=== PATIENT | female | born 1950 | race Caucasian/White ===

== ENCOUNTER 2016-12-30 17:44 | Emergency (ER) | payer BC, MEDICARE ==
[2016-12-30] MEDS ORDERED: ASPIRIN 81 MG TABLET, CHEWABLE PO ONE (18:42)
--- NOTE | 2016-12-30 18:44 | ER Document Report ---
ED Medical Screen (RME) - General Chief Complaint: Chest Pain Stated Complaint: CHEST PAIN, NECK PAIN,BACK PAIN Time Seen by Provider: 12/30/16 18:41 Notes: Patient has 2 days of chest pain radiating to the right shoulder. No cough cold congestion. No previous history of cardiac disease. He states the pain has been constant. TRAVEL OUTSIDE OF THE [place] IN LAST 30 DAYS: No - Related Data Allergies/Adverse Reactions: No Known Allergies Allergy (Verified 12/30/16 17:52) Home Medications: Current Home Medications Omeprazole Magnesium [Prilosec Otc] 1 tab PO DAILY 12/30/16 [History] Past Medical History - Social History Chew tobacco use (# tins/day): No Frequency of alcohol use: None Drug Abuse: None Renal/ Medical History: Denies: Hx Peritoneal Dialysis GI Medical History: Reports: Hx Gastroesophageal Reflux Disease Past Surgical History: Reports: Hx Tubal Ligation Physical Exam - Vital signs Vitals: Temp Pulse Resp BP Pulse Ox 98.2 F 79 20 144/89 H 94 12/30/16 17:52 12/30/16 17:52 12/30/16 17:52 12/30/16 17:52 12/30/16 17:52 Course - Vital Signs Vital signs: Temp Pulse Resp BP Pulse Ox 98.2 F 64 20 144/89 H 94 12/30/16 17:52 12/30/16 18:34 12/30/16 17:52 12/30/16 17:52 12/30/16 17:52
--- NOTE | 2016-12-30 19:03 | RADIOLOGY REPORT (SQ) ---
EXAM DESCRIPTION: CHEST PA/LAT COMPLETED DATE/TIME: 12/30/2016 6:56 pm REASON FOR STUDY: pain COMPARISON: None. EXAM PARAMETERS: NUMBER OF VIEWS: two views TECHNIQUE: Digital Frontal and Lateral radiographic views of the chest acquired. RADIATION DOSE: NA LIMITATIONS: none FINDINGS: LUNGS AND PLEURA: No opacities, masses or pneumothorax. No pleural effusion. MEDIASTINUM AND HILAR STRUCTURES: No masses or contour abnormalities. HEART AND VASCULAR STRUCTURES: Heart normal size. No evidence for failure. BONES: No acute findings. HARDWARE: None in the chest. OTHER: No other significant finding. IMPRESSION: NO SIGNIFICANT RADIOGRAPHIC FINDING IN THE CHEST. TECHNICAL DOCUMENTATION: JOB ID: [id number]- All Rights Reserved
[2016-12-30 19:49] LABS: ABSOLUTE BASOPHILS # (AUTO) 0.1 10^3/uL (0.0-0.2); ABSOLUTE LYMPHOCYTES (AUTO) 1.6 10^3/uL (0.5-4.7); ABSOLUTE MONOCYTES (AUTO) 0.6 10^3/uL (0.1-1.4); ABSOLUTE NEUT (AUTO) 13.3 10^3/uL (1.7-8.2); BASOPHILS % (AUTO) 0.4 % (0-2); EOSINOPHILS % (AUTO) 0.2 % (0-6); HEMATOCRIT 44.8 % (36.0-47.0); HEMOGLOBIN 15.4 g/dL (12.0-15.5); HGB HCT DIFFERENCE 1.4; LYMPHOCYTES % (AUTO) 10.4 % (13-45); MEAN CORPUSCULAR HGB CONC 34.3 g/dL (32.0-36.0); MEAN CORPUSCULAR VOLUME 85 fl (80-97); MONOCYTES % (AUTO) 3.9 % (3-13); RED BLOOD COUNT 5.31 10^6/uL (3.72-5.28); RED CELL DISTRIBUTION WIDTH 14.2 % (11.5-14.0); SEGMENTED NEUTROPHILS % (AUTO) 85.1 % (42-78); WHITE BLOOD COUNT 15.7 10^3/uL (4.0-10.5)
[2016-12-30] MEDS ORDERED: KETOROLAC TROMETHAMINE INJ/PF 30 MG/1 ML SDV IV ONE (20:14)
[2016-12-30] MEDS ORDERED: LIDOCAINE 5% (700 MG) TRANSDERMAL ADH..PATCH TP ONE (20:14)
--- NOTE | 2016-12-30 20:17 | ER Document Report ---
ED General - General Chief Complaint: Chest Pain Stated Complaint: CHEST PAIN, NECK PAIN,BACK PAIN Time Seen by Provider: 12/30/16 18:41 Notes: Patient is a 66-year-old female with past medical history of hypertension, no known cardiac history, no prior history of DVT or pulmonary embolus, no prior abdominal surgeries who presents with 24 hours of right lower chest wall pain and right upper quadrant abdominal pain. Does describe it as a constant, stabbing, throbbing discomfort. She notes associated nausea. She denies any fever, shortness of breath, or diaphoresis. She states that she has felt hot and then cold since onset of the pain. She denies any history of similar symptoms in the past. Nothing improves or worsens her pain. She has not seen a primary care doctor regarding today's concerns. TRAVEL OUTSIDE OF THE [place] IN LAST 30 DAYS: No - Related Data Allergies/Adverse Reactions: No Known Allergies Allergy (Verified 12/30/16 17:52) Home Medications: Current Home Medications Omeprazole Magnesium [Prilosec Otc] 1 tab PO DAILY 12/30/16 [History] Past Medical History - General Information source: Patient - Social History Smoking Status: Never Smoker Chew tobacco use (# tins/day): No Frequency of alcohol use: None Drug Abuse: None Lives with: Spouse/Significant other Family History: Reviewed & Not Pertinent Patient has suicidal ideation: No Patient has homicidal ideation: No Renal/ Medical History: Denies: Hx Peritoneal Dialysis GI Medical History: Reports: Hx Gastroesophageal Reflux Disease Past Surgical History: Reports: Hx Tubal Ligation Review of Systems - Review of Systems Notes: Constitutional: Negative for fever. HENT: Negative for sore throat. Eyes: Negative for visual changes. Cardiovascular: Positive for chest pain. Respiratory: Negative for shortness of breath. Gastrointestinal: Positive for abdominal pain and nausea Genitourinary: Negative for dysuria. Musculoskeletal: Negative for back pain. Skin: Negative for rash. Neurological: Negative for headaches, weakness or numbness. 10 point ROS negative except as marked above and in HPI. Physical Exam - Vital signs Vitals: Temp Pulse Resp BP Pulse Ox 98.2 F 79 20 144/89 H 94 12/30/16 17:52 12/30/16 17:52 12/30/16 17:52 12/30/16 17:52 12/30/16 17:52 Interpretation: Normal Notes: PHYSICAL EXAMINATION: GENERAL: Well-appearing, well-nourished and in no acute distress. HEAD: Atraumatic, normocephalic. EYES: Pupils equal round and reactive to light, extraocular movements intact, sclera anicteric, conjunctiva are normal. ENT: nares patent, oropharynx clear without exudates. Moist mucous membranes. NECK: Normal range of motion, supple without lymphadenopathy LUNGS: Breath sounds clear to auscultation bilaterally and equal. No wheezes rales or rhonchi. HEART: Regular rate and rhythm without murmurs ABDOMEN: Soft, focal right upper quadrant abdominal tenderness otherwise no localized areas of tenderness, normoactive bowel sounds. No guarding, no rebound. No masses appreciated. EXTREMITIES: Normal range of motion, no pitting or edema. No cyanosis. NEUROLOGICAL: No focal neurological deficits. Moves all extremities spontaneously and on command. PSYCH: Normal mood, normal affect. SKIN: Warm, Dry, normal turgor, no rashes or lesions noted. Course - Re-evaluation Re-evalutation: 12/30/16 20:16 Patient presents with right lower chest and right upper quadrant abdominal pain that is been present for 24 hours. Patient is overall well in appearance on exam, only notable physical findings right upper quadrant abdominal pain as well as right lower chest wall pain on palpation of the area. She denies any pleuritic pain, shortness of breath hemoptysis, unilateral leg swelling, any history of DVT or pulmonary embolus, does not use any form of supplemental estrogen. Her Wells score is 0 and I do not clinically suspect an acute pulmonary embolus as the etiology of today's presentation. Her clinical history is likewise not consistent with an acute myocardial infarction or ACS. EKG without any ST changes and troponin is normal. Serial troponins do not seem indicated given her clinical history and I would also expect the initial troponin to be positive given that she has had 24 hours of continuous chest discomfort at this time. Aortic dissection likewise seems unlikely this patient does not have a widened mediastinum on chest x-ray, has symmetric blood pressures in the bilateral upper extremities, and symmetric pulses in the bilateral upper extremity's. She did also denies any typical symptoms of this diagnosis. I do have some concern for possible acute symptomatic lithiasis versus acute cholecystitis given her focal right upper quadrant abdominal tenderness and a formal ultrasound will also be obtained. Also provide some dramatic relief and reassess 12/30/16 23:52 Right upper quadrant ultrasound does show a large gallstone in the gallbladder wall neck and some pericholecystic fluid although patient now is completely asymptomatic without any ongoing pain and is tolerated oral intake without difficulty. Laboratories do not demonstrate a significant leukocytosis, LFT derangements, elevated bilirubin, alkaline phosphatase, or an elevated lipase. Patient is able to tolerate oral intake.At this time will discharge with return precautions and follow-up recommendations. Verbal discharge instructions given a the bedside and opportunity for questions given. Medication warnings reviewed. Patient is in agreement with this plan and has verbalized understanding of return precautions and the need for surgical follow- up within the next 3-4 days. - Vital Signs Vital signs: Temp Pulse Resp BP Pulse Ox 98.2 F 64 14 135/87 H 93 12/30/16 17:52 12/30/16 18:34 12/31/16 00:00 12/31/16 00:00 12/31/16 00:00 - Laboratory Result Diagrams: 12/30/16 19:37 12/30/16 20:30 Laboratory results interpreted by me: 12/30/16 19:37 WBC 15.7 H RBC 5.31 H RDW 14.2 H Seg Neutrophils % 85.1 H Lymphocytes % 10.4 L Absolute Neutrophils 13.3 H - Diagnostic Test Radiology reviewed: Image reviewed, Reports reviewed Radiology results interpreted by me: 12/30/16 23:53 Chest x-ray: No acute infiltrate - EKG Interpretation by Me Additional EKG results interpreted by me: 12/31/16 04:36 Normal sinus rhythm. Rate 77. No ST elevations or depressions. QTC is 440. Discharge - Discharge Clinical Impression: Symptomatic cholelithiasis Abdominal pain Qualifiers: Abdominal location: right upper quadrant Qualified Code(s): R10.11 - Right upper quadrant pain Condition: Good Disposition: HOME, SELF-CARE Additional Instructions: You have gallstones that are causing your symptoms. Be sure to avoid fat containing foods until you follow-up with a surgeon to have the gallbladder removed as eating these foods will trigger your pain. Please return to the emergency department if you develop a fever greater than 100.4F, persistent vomiting, worsening of your pain, or any other symptoms that are worrisome to you. Referrals: CHANI MURILLO MD [ACTIVE STAFF] - Follow up in 3-5 days
[2016-12-30 20:59] LABS: ALANINE AMINOTRANSFERASE 34 U/L (9-52); ALBUMIN 4.1 g/dL (3.5-5.0); ALKALINE PHOSPHATASE 73 U/L (38-126); ANION GAP 14 (5-19); ASPARTATE AMINO TRANSFERASE 20 U/L (14-36); BILIRUBIN,DIRECT 0.3 mg/dL (0.0-0.4); BILIRUBIN,TOTAL 0.7 mg/dL (0.2-1.3); BLOOD UREA NITROGEN 11 mg/dL (7-20); CALCIUM 9.7 mg/dL (8.4-10.2); CARBON DIOXIDE 23 mmol/L (22-30); CHLORIDE 105 mmol/L (98-107); CREATININE RESULT 0.72 mg/dL (0.52-1.25); GLUCOSE 98 mg/dL (75-110); POTASSIUM 3.7 mmol/L (3.6-5.0); SODIUM 142.1 mmol/L (137-145); TOTAL PROTEIN 6.8 g/dL (6.3-8.2)
--- NOTE | 2016-12-30 21:03 | EKG REPORT ---
SEVERITY:- ABNORMAL ECG - SINUS RHYTHM PROBABLE INFERIOR INFARCT, AGE INDETERMINATE : Confirmed by: Niecy Guzman MD 30-Dec-2016 21:02:56
--- NOTE | 2016-12-30 23:27 | RADIOLOGY REPORT (SQ) ---
EXAM DESCRIPTION: U/S ABDOMEN LIMITED W/O DOP COMPLETED DATE/TIME: 12/30/2016 11:12 pm REASON FOR STUDY: ruq pain COMPARISON: None. TECHNIQUE: Dynamic and static grayscale images acquired of the abdomen and recorded on PACS. Additio nal selected color Doppler and spectral images recorded. LIMITATIONS: Lidocaine patch of midline contributes to suboptimal images. FINDINGS: PANCREAS: Obscured. LIVER: No masses. Mild hepatic steatosis. LIVER VASCULATURE: Normal directional flow of the main portal vein and hepatic veins. GALLBLADDER: 2.6 cm stone at the gallbladder neck. Minimal pericholecystic fluid. Gallbladder wall thickness is 0.3 cm. ULTRASOUND-DETECTED ELLIS'S SIGN: Negative. INTRAHEPATIC DUCTS AND COMMON DUCT: CBD and intrahepatic ducts normal caliber. No filling defects. INFERIOR VENA CAVA: Normal flow. AORTA: Partially obscured distally. RIGHT KIDNEY: Normal size. Normal echogenicity. No solid or suspicious masses. No hydronephrosis. No calcifications. PERITONEAL AND RIGHT PLEURAL SPACE: No ascites or effusions. OTHER: No other significant findings. IMPRESSION: 2.6 cm stone at the gallbladder neck which may contribute to biliary colic. Minimal per icholecystic fluid. Negative sonographic Ellis's test at time of exam. TECHNICAL DOCUMENTATION: JOB ID: [id number] [email or web address]- All Rights Reserved
[2016-12-31 00:04] VITALS: BP 135/87
== END 2016-12-31 00:04 | disposition home or self-care (01) ==
LOC: ER 17:44
DX: K80.20 Calculus of gallbladder without cholecystitis without obstruction (principal); R10.11 Right upper quadrant pain; M54.2 Cervicalgia; M54.9 Dorsalgia, unspecified; I10 Essential (primary) hypertension; R07.89 Other chest pain
CPT/HCPCS: 93005; 99285; 96374; 36415; 85025; 80053; 84484; 71020; 76705; 93010; J1885